=== PATIENT | male | born 1950 | race Two or more races ===

== ENCOUNTER 2017-03-22 15:37 | Emergency (ER) | payer MEDICARE, OTHER ==
[2017-03-22 16:38] VITALS: BP 166/96
--- NOTE | 2017-03-22 16:55 | ER Document Report ---
ED Blood Pressure Problem - General Chief Complaint: Blood Pressure Problem Stated Complaint: BLOOD PRESSURE ISSUES Time Seen by Provider: 03/22/17 16:51 Mode of Arrival: Ambulatory Information source: Patient Notes: Patient states he was at sleep clinic today and they noticed that his blood pressure was high. He was then referred here to the emergency department. At sleep clinic his blood pressure was approximately 210/110 here today is 160/ 100. He states he has been feeling tired and weak the last several months. He denies any specific chest pain or increasing weakness today. Patient symptoms have been mild. They have been constant. Nothing makes symptoms better or worse. TRAVEL OUTSIDE OF THE [place] IN LAST 30 DAYS: No - Related Data Allergies/Adverse Reactions: meperidine HCl [From Demerol] Allergy (Severe, Verified 03/22/17 15:46) convulsions Past Medical History - General Information source: Patient - Social History Smoking Status: Never Smoker Chew tobacco use (# tins/day): No Frequency of alcohol use: None Drug Abuse: None Family History: Reviewed & Not Pertinent - Past Medical History Cardiac Medical History: Reports: Hx Coronary Artery Disease - stent x 1, Hx Heart Attack - 5-6 yrs ago, Hx Hypertension - meds 15-20 yrs Pulmonary Medical History: Denies: Hx Asthma, Hx Bronchitis, Hx COPD, Hx Pneumonia Neurological Medical History: Denies: Hx Cerebrovascular Accident, Hx Seizures Endocrine Medical History: Reports: Hx Diabetes Mellitus Type 2 Renal/ Medical History: Denies: Hx Peritoneal Dialysis Musculoskeltal Medical History: Reports Hx Arthritis - neck,hands,knees Past Surgical History: Reports: Hx Cardiac Surgery - Stent. Denies: Hx Pacemaker - Immunizations Hx Diphtheria, Pertussis, Tetanus Vaccination: Yes - 04/05/12 Review of Systems - Review of Systems Constitutional: Weakness. denies: Chills, Fever Cardiovascular: denies: Chest pain, Palpitations Respiratory: denies: Cough, Short of breath Neurological/Psychological: Weakness, Headaches Physical Exam - Vital signs Vitals: Temp Pulse Resp BP Pulse Ox 98.7 F 90 16 172/104 H 97 03/22/17 15:44 03/22/17 15:44 03/22/17 15:44 03/22/17 15:44 03/22/17 15:44 Interpretation: Hypertensive - General General appearance: Appears well, Alert - HEENT Head: Normocephalic, Atraumatic Eyes: Normal Pupils: PERRL - Respiratory Respiratory status: No respiratory distress Chest status: Nontender Breath sounds: Normal Chest palpation: Normal - Cardiovascular Rhythm: Regular Heart sounds: Normal auscultation Murmur: No - Abdominal Inspection: Normal Distension: No distension Bowel sounds: Normal Tenderness: Nontender Organomegaly: No organomegaly - Back Back: Normal, Nontender - Extremities General upper extremity: Normal inspection, Nontender, Normal color, Normal ROM , Normal temperature General lower extremity: Normal inspection, Nontender, Normal color, Normal ROM , Normal temperature, Normal weight bearing. No: Derian's sign - Neurological Neuro grossly intact: Yes Cognition: Normal Orientation: AAOx4 Mcdonald Coma Scale Eye Opening: Spontaneous Mateusz Coma Scale Verbal: Oriented Mateusz Coma Scale Motor: Obeys Commands Mcdonald Coma Scale Total: 15 Speech: Normal Motor strength normal: LUE, RUE, LLE, RLE Sensory: Normal - Psychological Associated symptoms: Normal affect, Normal mood - Skin Skin Temperature: Warm Skin Moisture: Dry Skin Color: Normal Course - Re-evaluation Re-evalutation: 03/22/17 16:52 I called the patient's senior vice president & general counsel, Dr. Sanders, and discussed the case with him. He suggested I start the patient on Norvasc and he will see him in the office. - Vital Signs Vital signs: Temp Pulse Resp BP Pulse Ox 98.7 F 79 18 166/96 H 97 03/22/17 16:36 03/22/17 16:36 03/22/17 16:36 03/22/17 16:36 03/22/17 16:36 Discharge - Discharge Clinical Impression: Uncontrolled hypertension Condition: Stable Disposition: HOME, SELF-CARE Instructions: High Blood Pressure, Requiring Treatment ([facility]) Additional Instructions: Please call Dr. Sanders as soon as possible to schedule follow-up. Prescriptions: Amlodipine Besylate [Norvasc 5 mg Tablet] 5 mg PO DAILY #30 tablet Forms: Elevated Blood Pressure
== END 2017-03-22 17:29 | disposition home or self-care (01) ==
LOC: ER 15:37
DX: I10 Essential (primary) hypertension (principal); R53.1 Weakness
CPT/HCPCS: 99283

== ENCOUNTER 2017-04-05 18:37 | Emergency (ER) | payer MEDICARE, OTHER ==
[2017-04-05 19:09] VITALS: BP 170/75
--- NOTE | 2017-04-05 19:39 | ER Document Report ---
ED Medical Screen (RME) - General Mode of Arrival: Ambulatory TRAVEL OUTSIDE OF THE [place] IN LAST 30 DAYS: No - HPI Patient complains to provider of: Testicular Pain and Swelling Onset: This afternoon Associated Symptoms: Other - see notes above - Related Data Smoking: Non-smoker Frequency of alcohol use: Social Drug Abuse: Marijuana <GOLD CONTRERAS - Last Filed: 04/05/17 20:55> <NOHEMI ORTIZ - Last Filed: 04/05/17 21:37> - General Chief Complaint: Testicular Swelling Stated Complaint: TESTICULAR PAIN, SWELLING Time Seen by Provider: 04/05/17 19:33 Notes: 66-year-old male presents to the ED complaining of left testicular pain and swelling that started earlier today. Patient reports some dysuria, foul- smelling urine, vomiting, and pain to the left lower abdomen. Patient denies bruising, fever, or any trauma to his testicles. Patient denies any recent antibiotic use. (GOLD CONTRERAS) - Related Data Allergies/Adverse Reactions: meperidine HCl [From Demerol] Allergy (Severe, Verified 04/05/17 19:06) convulsions Past Medical History - General Information source: Patient - Social History Chew tobacco use (# tins/day): No Frequency of alcohol use: Rare Drug Abuse: Other Family history: Reviewed & Not Pertinent - Past Medical History Cardiac Medical History: Reports: Hx Coronary Artery Disease - stent x 1, Hx Heart Attack - 5-6 yrs ago, Hx Hypertension - meds 15-20 yrs Pulmonary Medical History: Denies: Hx Asthma, Hx Bronchitis, Hx COPD, Hx Pneumonia Neurological Medical History: Denies: Hx Cerebrovascular Accident, Hx Seizures Endocrine Medical History: Reports: Hx Diabetes Mellitus Type 2 Renal/ Medical History: Denies: Hx Peritoneal Dialysis Musculoskeltal Medical History: Reports Hx Arthritis - neck,hands,knees Past Surgical History: Reports: Hx Cardiac Surgery - Stent, Hx Genitourinary Surgery - removed right testicle. Denies: Hx Pacemaker - Immunizations Hx Diphtheria, Pertussis, Tetanus Vaccination: Yes - 04/05/12 History of Influenza Vaccine for 03/2017 - 08/2017 Season: No <GOLD CONTRERAS - Last Filed: 04/05/17 20:55> Review of Systems - Review of Systems Constitutional: No symptoms reported. denies: Fever EENT: No symptoms reported Cardiovascular: No symptoms reported Respiratory: No symptoms reported Gastrointestinal: See HPI, Abdominal pain - left lower abdomen, Vomiting Genitourinary: See HPI, Dysuria, Other - foul smelling urine Male Genitourinary: See HPI, Testicular pain - left testicular pain and swelling Musculoskeletal: No symptoms reported Skin: No symptoms reported Hematologic/Lymphatic: No symptoms reported Neurological/Psychological: No symptoms reported -: Yes All other systems reviewed and negative <GOLD CONTRERAS - Last Filed: 04/05/17 20:55> Physical Exam - General General appearance: Alert In distress: None - Genitourinary Tenderness: Testicle tender - left. No: Epididymis tender Cremasteric reflex: Left reflex absent Scrotum: Swelling - left hemiscrotum swelling that is semi-firm, but not indurated. Same level of warmth to both testicles. <GOLD CONTRERAS - Last Filed: 04/05/17 20:55> - Vital signs Vitals: Temp Pulse Resp BP Pulse Ox 99.1 F 99 18 170/75 H 98 04/05/17 19:07 04/05/17 19:07 04/05/17 19:07 04/05/17 19:07 04/05/17 19:07 Course - Laboratory Result Diagrams: 04/05/17 19:55 04/05/17 19:55 <GOLD CONTRERAS - Last Filed: 04/05/17 20:55> - Laboratory Result Diagrams: 04/05/17 19:55 04/05/17 19:55 <NOHEMI ORTIZ - Last Filed: 04/05/17 21:37> - Vital Signs Vital signs: Temp Pulse Resp BP Pulse Ox 99.1 F 99 18 170/75 H 98 04/05/17 19:07 04/05/17 19:07 04/05/17 19:07 04/05/17 19:07 04/05/17 19:07 - Laboratory Laboratory results interpreted by me: 04/05/17 04/05/17 04/05/17 19:55 19:55 20:00 WBC 19.8 H RDW 14.5 H Absolute Neutrophils 15.2 H Absolute Monocytes 1.5 H Glucose 145 H Direct Bilirubin 0.5 H Urine Protein 100 H Urine Blood SMALL H Urine Urobilinogen 2.0 H Ur Leukocyte Esterase MODERATE H Scribe Documentation - Scribe Written by Madiha:: Madiha Young, 04/05/20172058 acting as scribe for :: Rula <GOLD CONTRERAS - Last Filed: 04/05/17 20:55>
[2017-04-05 20:19] LABS: ABSOLUTE BASOPHILS # (AUTO) 0.1 10^3/uL (0.0-0.2); ABSOLUTE EOSINOPHILS # (AUTO) 0.1 10^3/uL (0.0-0.6); ABSOLUTE LYMPHOCYTES (AUTO) 2.9 10^3/uL (0.5-4.7); ABSOLUTE MONOCYTES (AUTO) 1.5 10^3/uL (0.1-1.4); ABSOLUTE NEUT (AUTO) 15.2 10^3/uL (1.7-8.2); BASOPHILS % (AUTO) 0.3 % (0-2); EOSINOPHILS % (AUTO) 0.7 % (0-6); HEMATOCRIT 43.1 % (37.9-51.0); HEMOGLOBIN 14.2 g/dL (13.5-17.0); HGB HCT DIFFERENCE -0.5; LYMPHOCYTES % (AUTO) 14.8 % (13-45); MEAN CORPUSCULAR HEMOGLOBIN 30.7 pg (27.0-33.4); MEAN CORPUSCULAR HGB CONC 32.9 g/dL (32.0-36.0); MEAN CORPUSCULAR VOLUME 93 fl (80-97); MONOCYTES % (AUTO) 7.5 % (3-13); RED BLOOD COUNT 4.61 10^6/uL (4.35-5.55); RED CELL DISTRIBUTION WIDTH 14.5 % (11.5-14.0); SEGMENTED NEUTROPHILS % (AUTO) 76.7 % (42-78); WHITE BLOOD COUNT 19.8 10^3/uL (4.0-10.5)
[2017-04-05 20:37] LABS: ALANINE AMINOTRANSFERASE 39 U/L (21-72); ALKALINE PHOSPHATASE 80 U/L (38-126); ANION GAP 15 (5-19); ASPARTATE AMINO TRANSFERASE 18 U/L (17-59); BILIRUBIN,DIRECT 0.5 mg/dL (0.0-0.4); BLOOD UREA NITROGEN 15 mg/dL (7-20); CALCIUM 9.5 mg/dL (8.4-10.2); CARBON DIOXIDE 29 mmol/L (22-30); CHLORIDE 99 mmol/L (98-107); GLUCOSE 145 mg/dL (75-110); POTASSIUM 4.7 mmol/L (3.6-5.0); SODIUM 142.5 mmol/L (137-145); TOTAL PROTEIN 6.8 g/dL (6.3-8.2)
[2017-04-05 20:44] LABS: APPEARANCE,URINE SLIGHTLY-CLOUDY; BILIRUBIN,URINE NEGATIVE (NEGATIVE); GLUCOSE, URINE NEGATIVE (NEGATIVE); KETONES,URINE NEGATIVE (NEGATIVE); LEUKOCYTE ESTERASE,URINE MODERATE (NEGATIVE); NITRITE,URINE NEGATIVE (NEGATIVE); PROTEIN,URINE 100 mg/dL (NEGATIVE); URINE SPECIFIC GRAVITY 1.025
--- NOTE | 2017-04-05 21:18 | RADIOLOGY REPORT (SQ) ---
EXAM DESCRIPTION: U/S SCROTUM W/DOPPLER COMPLETED DATE/TIME: 04/05/2017 9:07 pm REASON FOR STUDY: swelling to left testicle, pain, r/o torsion COMPARISON: None. TECHNIQUE: Static and realtime borjas scale imaging of the scrotum and testes. Selected color Doppler and spectral images recorded to document blood flow. LIMITATIONS: None. FINDINGS: RIGHT: TESTICLE: Surgically absent. OTHER: No other significant finding. LEFT: TESTICLE: Mildly Heterogeneous echotexture. Hypervascularity. No mass identified. EPIDIDYMIS: Enlarged with heterogeneous echotexture and hypervascularity. HYDROCELE OR VARICOCELE: Complex hydrocele. HERNIA OR EXTRA-TESTICULAR MASS: No. OTHER: No other significant finding. IMPRESSION: Findings consistent with left orchitis-epididymitis with a complex hydrocele. No eviden ce of torsion. TECHNICAL DOCUMENTATION: JOB ID: [id number] 2005 [email or web address] All Rights Reserved
[2017-04-05] MEDS ORDERED: CEFTRIAXONE INJ 250 MG VIAL IM ONE (21:36)
[2017-04-05] MEDS ORDERED: LIDOCAINE 1% INJ-PF (10 MG/ML) 30 ML SDV INJ ONE (21:36)
[2017-04-05] MEDS ORDERED: AZITHROMYCIN 250 MG TABLET PO ONE (21:36)
--- NOTE | 2017-04-05 21:44 | ER Document Report ---
ED GI/ - General Chief Complaint: Testicular Swelling Stated Complaint: TESTICULAR PAIN, SWELLING Time Seen by Provider: 04/05/17 19:33 Mode of Arrival: Ambulatory Information source: Patient Notes: Pt is a 66 year old male who presents with 3 days of left testicular swelling and pain. Pt has had chills but denies fever. He denies being concerned about STDs, he denies injury, penile discharge. TRAVEL OUTSIDE OF THE [place] IN LAST 30 DAYS: No - Related Data Allergies/Adverse Reactions: meperidine HCl [From Demerol] Allergy (Severe, Verified 04/05/17 19:06) convulsions Past Medical History - General Information source: Patient - Social History Smoking Status: Current Every Day Smoker Chew tobacco use (# tins/day): No Frequency of alcohol use: Rare Drug Abuse: Other Family History: Reviewed & Not Pertinent Patient has suicidal ideation: No - Past Medical History Cardiac Medical History: Reports: Hx Coronary Artery Disease - stent x 1, Hx Heart Attack - 5-6 yrs ago, Hx Hypertension - meds 15-20 yrs Pulmonary Medical History: Denies: Hx Asthma, Hx Bronchitis, Hx COPD, Hx Pneumonia Neurological Medical History: Denies: Hx Cerebrovascular Accident, Hx Seizures Endocrine Medical History: Reports: Hx Diabetes Mellitus Type 2 Renal/ Medical History: Denies: Hx Peritoneal Dialysis Musculoskeltal Medical History: Reports Hx Arthritis - neck,hands,knees Past Surgical History: Reports: Hx Cardiac Surgery - Stent, Hx Genitourinary Surgery - removed right testicle. Denies: Hx Pacemaker - Immunizations Hx Diphtheria, Pertussis, Tetanus Vaccination: Yes - 04/05/12 Hx Pneumococcal Vaccination: 06/25/16 Review of Systems - Review of Systems Constitutional: No symptoms reported EENT: No symptoms reported Cardiovascular: No symptoms reported Respiratory: No symptoms reported Gastrointestinal: No symptoms reported Genitourinary: No symptoms reported Male Genitourinary: See HPI Musculoskeletal: No symptoms reported Skin: No symptoms reported Hematologic/Lymphatic: No symptoms reported Neurological/Psychological: No symptoms reported Physical Exam - Vital signs Vitals: Temp Pulse Resp BP Pulse Ox 99.1 F 99 18 170/75 H 98 04/05/17 19:07 04/05/17 19:07 04/05/17 19:07 04/05/17 19:07 04/05/17 19:07 - Notes Notes: PHYSICAL EXAMINATION: GENERAL: Well-appearing and in no acute distress. HEAD: Atraumatic, normocephalic. EYES: Pupils equal round and reactive to light, extraocular movements intact, sclera anicteric, conjunctiva are normal. NECK: Normal range of motion, supple without lymphadenopathy LUNGS: CTAB and equal. No wheezes rales or rhonchi. HEART: Regular rate and rhythm without murmurs ABDOMEN: Soft, no tenderness. No guarding, no rebound BACK: no vertebral tenderness, normal ROM GI/: no CVA tenderness, left testicle edematous and much larger than right, tender, no fluctuance or induration EXTREMITIES: Normal range of motion, no pitting edema. No cyanosis. NEUROLOGICAL: Cranial nerves grossly intact. Normal sensory/motor exams. PSYCH: Normal mood, normal affect. SKIN: Warm, Dry, normal turgor, no rashes or lesions noted Course - Re-evaluation Re-evalutation: 04/05/17 21:46 Pt has WBC of 19.8, UA shows infection with leukokcytes and WBC, ultrasound reveals epidydmitis/orchitis with complex hydrocele. I called radiologist and he stated that this could be an abscess, but not quite clear. Pt absolutely refuses to stay in the hospital because his daughter is getting in two days and tomorrow is the "preparation day." I will treat him here with rocephin IM, azithromycin and send him home on doxycycline. - Vital Signs Vital signs: Temp Pulse Resp BP Pulse Ox 99.1 F 99 18 170/75 H 98 04/05/17 19:07 04/05/17 19:07 04/05/17 19:07 04/05/17 19:07 04/05/17 19:07 - Laboratory Result Diagrams: 04/05/17 19:55 04/05/17 19:55 Laboratory results interpreted by me: 04/05/17 04/05/17 04/05/17 19:55 19:55 20:00 WBC 19.8 H RDW 14.5 H Absolute Neutrophils 15.2 H Absolute Monocytes 1.5 H Glucose 145 H Direct Bilirubin 0.5 H Urine Protein 100 H Urine Blood SMALL H Urine Urobilinogen 2.0 H Ur Leukocyte Esterase MODERATE H Discharge - Discharge Clinical Impression: complex hydrocele, Orchitis and epididymitis Condition: Stable Disposition: HOME, SELF-CARE Instructions: Doxycycline ([facility]), Epididymitis ([facility]) Additional Instructions: Return immediately for any new or worsening symptoms. Follow up with urology if swelling doesn't subside, it may need to be drained by them. Follow up with urologist if symptoms do not resolve in 7 days. [facility] [place] [facility] [address] [place], [place] [phone] [place] [facility] [address] [facility]. [place], [place] [phone] Prescriptions: Doxycycline Hyclate 100 mg PO BID #20 capsule Oxycodone HCl/Acetaminophen [Percocet 5-325 mg Tablet] 1 - 2 tab PO Q4H PRN #25 tablet PRN Reason:
[2017-04-05] MEDS ORDERED: HYDROCODONE/ACETAMINOPHEN 5-325 MG 6 TAB/DSPK PO PRN (21:52)
== END 2017-04-05 22:16 | disposition home or self-care (01) ==
LOC: ER 18:37
DX: N45.3 Epididymo-orchitis (principal); N43.3 Hydrocele, unspecified; N50.812 Left testicular pain; R68.83 Chills (without fever); E11.9 Type 2 diabetes mellitus without complications; I10 Essential (primary) hypertension; I25.2 Old myocardial infarction; I25.10 Atherosclerotic heart disease of native coronary artery without angina pectoris; F17.200 Nicotine dependence, unspecified, uncomplicated; Z88.5 Allergy status to narcotic agent; Z95.5 Presence of coronary angioplasty implant and graft; Z90.79 Acquired absence of other genital organ(s)
CPT/HCPCS: 99284; 96372; 36415; 85025; 80053; 81001; 76870; 93976; A9270 ×2; J3490; J0696